=== PATIENT | male | born 1970 | race Two or more races ===

== ENCOUNTER 2024-10-19 14:05 | Emergency (ER) | payer MEDICARE, MEDICAID, SELFPAY ==
[2024-10-19 14:07] VITALS: BMI 26.6
[2024-10-19 14:24] VITALS: BP 115/79; PULSE 85; RESP 20; TEMP 36.7; O2SAT 95
--- NOTE | 2024-10-19 14:31 | PD.EDRME ---
Rapid Medical Screening Exam E Arrival date/time: 10/19/24 14:05 This is a 54-year-old male that comes into the emergency room with a complaint of left flank pain that started yesterday. Patient denies any fever, chills, nausea, vomiting, diarrhea. Patient reports history of diabetes and high blood pressure. I have greeted and performed a focused initial assessment of this patient. Initial appropriate labs ordered at this time. A comprehensive ED assessment and evaluation of the patient and analysis of all test and completion of medical decision making process will be conducted by additional ED provider. Chief Complaint: Urogenital-Male Time Seen by Provider: 10/19/24 14:26 Vital signs: Vital Signs Temperature 98.0 F 10/19/24 14:24 Pulse Rate 85 10/19/24 14:24 Respiratory Rate 20 10/19/24 14:24 Blood Pressure 115/79 10/19/24 14:24 Pulse Oximetry (%) 95 10/19/24 14:24 Oxygen Delivery Method Room Air 10/19/24 14:24
[2024-10-19 14:44] LABS: Basophils # (Auto) 0.1 Thou/mm3 (0.0-0.2); Basophils % (Auto) 1 % (0-2.5); Eosinophils # (Auto) 0.3 Thou/mm3 (0.0-0.5); Eosinophils % (Auto) 4 % (0-10); Hematocrit 38.3 % (41.0-53.0); Hemoglobin 12.9 g/dL (13.5-16.0); Immature Granulocytes % (Auto) 0 % (0-0); Immature Granulocytes Auto 0.02 Thou/mm3 (0.00-0.00); Lymphocytes # (Auto) 3.2 Thou/mm3 (1.0-4.8); Lymphocytes % (Auto) 45 % (10-50); Mean Corpuscular HGB Conc 33.7 g/dl (31.0-37.0); Mean Corpuscular Hemoglobin 27.9 pg (25.0-35.0); Mean Corpuscular Volume 83 fL (80-100); Monocytes # (Auto) 0.5 Thou/mm3 (0.0-0.8); Monocytes % (Auto) 7 % (0-12); Neutrophils # (Auto) 3.2 Thou/mm3 (1.8-7.7); Neutrophils % (Auto) 44 % (37-80); Nucleated Red Blood Cell % 0 /100 WBC (0); Platelet Count 340 Thou/mm3 (140-440); RDW Standard Deviation 38.2 fL (35.1-43.9); Red Blood Count 4.62 Miln/mm3 (4.50-5.90); White Blood Count 7.3 Thou/mm3 (3.8-10.6)
[2024-10-19 15:01] LABS: Alanine Aminotransferase 53 U/L (10-49); Albumin, Serum 4.8 gm/dL (3.5-5.0); Albumin/Globulin Ratio 1.9 (1.2-2.2); Alkaline Phosphatase 79 U/L (46-116); Anion Gap 7 (7-16); Aspartate Amino Transferase 36 U/L (0-34); BUN/Creatinine Ratio 10 Ratio (12-20); Blood Urea Nitrogen 10 mg/dL (9-23); Calcium 9.6 mg/dL (8.3-10.6); Calcium (Corrected) 9.6 mg/dL (8.5-10.1); Carbon Dioxide 30.4 mMol/L (20.0-31.0); Chloride 101 mMol/L (98-107); Estimated Creatinine Clearance 79.8 mL/min (>60); Globulin 2.5 gm/dL (2.3-3.5); Glucose 170 mg/dL (74-106); Lipase 33 U/L (12-53); Osmolality,Calculated 278 (275-295); Potassium 4.3 mMol/L (3.4-5.1); Sodium 138 mMol/L (136-145); Total Protein 7.3 gm/dL (5.7-8.2); eGFR > 60 See Note
[2024-10-19 15:25] LABS: Collection Type, Urine Voided; WBC,Urine 0 /hpf (0-5)
[2024-10-19 15:31] LABS: Amorphous Crystals,Urine Present (Absent); Bilirubin,Urine Negative (Negative); Blood,Urine Negative (Negative); Clarity,Urine Clear (Clear/Hazy); Color,Urine Yellow (Lt Yel-Yel); Culture Indicated,Urine Not Indicated; Glucose, Urine Negative (Negative); Ketones,Urine Negative (Negative); Leukocyte Esterase,Urine Negative (Negative); Nitrite,Urine Negative (Negative); Protein,Urine Negative (Neg - Trace); RBC,Urine 1 /hpf (0-3); Squamous Epithelial Cell,Urine < 1 /hpf (0-5); Urobilinogen,Urine Negative mg/dL (0.0-1.0)
--- NOTE | 2024-10-19 15:57 | XR_ITS ---
Examination: CT abdomen and pelvis without contrast. Coronal 3-D reconstructions. Sagittal 2-D reconstructions. Date and time of exam:October 19, 2024 at 1609 hrs. Indications: Flank pain this week CTDI: vol (mGy): 7.95 DLP: (mGycm): 445 Technique: Axial images of the abdomen have been obtained, 3 mm slice thickness Intravenous contrast material has not been administered. Low dose protocols were performed. One or more of the following dose reduction techniques were used; automated exposure control, adjustment of the mA and/or KV according to patient size, use of iterative reconstruction technique. Findings: Diffuse fatty infiltration throughout the liver. Spleen is not enlarged. Absent gallbladder No pancreatic mass. Moderate air and stool throughout the colon Normal appendix No bowel obstruction No diverticulitis No renal or ureteral calculi No bladder mass or bladder calculi Urinary bladder wall is mildly thickened No significant prostatomegaly Moderate osteopenia Impression: No renal or ureteral calculi, no hydronephrosis No bladder mass or bladder calculi Mild cystitis pattern
--- NOTE | 2024-10-19 15:58 | EDNOTE_ITS ---
<Statement entered by Alexandra Epstein MD - 10/20/24 15:17> As co-signing physician, I was present and available for consult prn. I concur with the plan and care as documented by the midlevel provider. ED General RME/HPI General Chief complaint: Urogenital-Male Stated complaint: L FLANK PAIN SINCE YESTERDAY Time Seen by Provider: 10/19/24 14:26 Arrival date/time: 10/19/24 14:05 CC: Left flank pain HPI onset 24 hours ago denies fever chills shortness of breath difficulty breathing nausea vomiting diarrhea Tylenol does not relieve the pain. No prior history of similar events although the patient was here for flank pain in July 2023. Patient is awake alert oriented nontoxic-appearing in mild discomfort. RME / HPI RME / HPI narrative: 10/19/24 14:05 This is a 54-year-old male that comes into the emergency room with a complaint of left flank pain that started yesterday. Patient denies any fever, chills, nausea, vomiting, diarrhea. Patient reports history of diabetes and high blood pressure. I have greeted and performed a focused initial assessment of this patient. Initial appropriate labs ordered at this time. A comprehensive ED assessment and evaluation of the patient and analysis of all test and completion of medical decision making process will be conducted by additional ED provider. Related Data Home Medications ?Medication ?Instructions ?Recorded ?Confirmed hydroxyzine HCl 25 mg tablet 25 mg PO QDAY 08/24/23 Held on 08/24/23. Instructions: Resume on 08/25/23. losartan 50 mg tablet 50 mg PO QDAY 08/24/2308/24 metformin 1,000 mg tablet 1,000 mg PO BID 08/24/23 methadone 10 mg/5 mL oral solution 70 mg PO QDAY 08/2408/24/23 quetiapine 25 mg tablet 25 mg PO QDAY 08/24/2308/24 Previous Rx's ?Medication ?Instructions ?Recorded ketorolac 10 mg tablet 10 mg PO Q8H PRN pain #14 ta bs 10/19/24 Allergies Allergy/AdvReac Type Severity Reaction Status Date / Time No Known Allergies Allergy Verified 10/19/24 14:06 Review of Systems Review of Systems Narrative Review of Systems: GEN: No fever, no chills, no weight loss EYES: No discharge, no visual changes, no pain HEENT: No ear pain, no congestion, no sore throat PULM: No shortness of breath, no cough, no congestion CV: No chest pain, no dyspnea on exertion, no palpitations GI: No nausea, no vomiting, no diarrhea, no pain, no constipation : No frequency, no urgency, no dysuria MUSC/SKEL: No joint pain, + back pain SKIN: No rash PSYCH: No hallucinations, no depression HEME/LYMPH: No easy bleeding or bruising tendencies NEURO: No weakness, no headache Past Medical History Past Medical History NEUROLOGIC: Negative Neurological Disorders or Seizures CARDIAC: Positive Cardiac Disorders, Hypercholesterolemia and Hypertension; Negative Congestive Heart Failure RESPIRATORY: Negative Chronic Obstructive Pulmonary Disease (COPD) or Asthma GASTROINTESTINAL: Positive Gastrointestinal Disorders (ABDOMINAL PAIN) and Gall Bladder Disease (HAD SURGERY) GENITOURINARY: Positive Genitourinary Disorders and Kidney Stones (IN THE PAST); Negative Renal Disease MUSCULOSKELETAL: Positive Musculoskeletal Disorders and Arthritis ENDOCRINE: Positive Endocrine Disorders and Diabetes Mellitus Type 2; Negative Diabetes Mellitus Type 1 HEMATOLOGIC: Positive Blood Disorders and Anemia; Negative Sickle Cell Disease PSYCHO/SOCIAL: Positive Depression, Anxiety and Post Traumatic Stress Disorder OTHER HISTORY: Negative Autoimmune Disease, Falls, Blood Transfusions, Blood Transfusion Reaction, Anesthesia Reactions, MRSA or Cancer Family History FAMILY HISTORY: Negative Family Neurologic Problems or Family Cardiac Disorders Surgical History SURGICAL: Positive Abdominal Surgery and Arthroscopy (KNEE X2); Negative Endocrine Surgery Social History SMOKING STATUS: Never smoker ED Exam Narrative Physical exam: [General: Mild discomfort but not in any acute distress Head normocephalic HEENT: Within acceptable limits Neck is supple nontender Chest equal chest rise nontender to palpation Respiratory: Clear to auscultation no wheezes crackles or rubs CV: Rate rhythm is regular no murmurs rubs or clicks Abdomen is distended secondary to body habitus soft nontender no masses positive bowel sounds all 4 quadrants Back: Left CVA tenderness no right-sided CVA tenderness, no spinous process tenderness from cervical spine thoracic and lumbar spine Skin: Intact no petechiae rash induration ulceration or crepitus Extremities: Moving all extremity against resistance cap refill less than 2 seconds neurosensory intact Neuro: Awake alert oriented x3 Glascow coma 15 no focal deficits] Course Quality Measures none Orders Category Date Time Status CT abdomen pelvis wo con Stat Exams 10/19/24 15:57 Completed CBC Stat Lab 10/19/24 14:40 Completed Comprehensive Metabolic Panel Stat Lab 10/19/24 14:40 Completed Lipase Stat Lab 10/19/24 14:40 Completed Urinalysis, C/S if Indicated Stat Lab 10/19/24 15:00 Completed Ketorolac Inj [Toradol Inj] Med 10/19/24 17:50 Once 15 mg IM X1 ONE Vital Signs Vital signs: Vital Signs Temperature 98.0 F 10/19/24 14:24 Pulse Rate 85 10/19/24 14:24 Respiratory Rate 20 10/19/24 14:24 Blood Pressure 115/79 10/19/24 14:24 Pulse Oximetry (%) 95 10/19/24 14:24 Oxygen Delivery Method Room Air 10/19/24 14:[address] [facility] Patient data External records reviewed:: [facility] previous records Clinical information provided by:: patient Social determinants that could affect healthcare access:: none Patient has the following chronic illnesses:: None How is presenting disease/condition affected by chronic disease/condition?: u neffected by Evaluation data The following diagnostics were reviewed and interpreted by me:: lab results and radiology exam(s) Lab and/or radiology exams considered but not ordered:: CBC shows no acute leukocytosis mild anemia 12.9 and 38.3 on hemoglobin and hematocrit respectively no thrombocytopenia CMP showed no significant electrolyte imbalances other than a glucose of 170. A very mild transaminitis no T. bili elevation. Lipase is normal Urine is negative other than M4's crystals. CT of the abdomen is negative for any acute finding. Interpretation Summary: Patient be discharged home on ketorolac for flank pain. Medications Medications considered but not ordered:: None Medication administrations:: None Consultations Consultation(s) initiated? (list below): No Diagnosis Differential Diagnosis ED Complaint MDM: Urolithiasis cholelithiasis hydroureter Most likely diagnosis given after review of the tests above:: Left flank pain Admission Indicated Admission indicated?: not indicated Explain why admission is indicated or not indicated:: Stable for discharge Admission Request Was there a request for admission?: No Disposition Plan Disposition Plan: Discharge Discharge Attestation Discharge Attestation: The patient and all family members were given an opportunity to ask questions and understood the discharge instructions. Discharge instructions specifically effects, indications for sooner follow up or return to the emergency department, and the expected course of current diagnosis. Patient condition: Stable Medical Decision Making Differential Diagnosis Differential Diagnosis: Urolithiasis cholelithiasis hydroureter Lab Data 10/19/24 14:40 10/19/24 14:40 Labs: Lab Results 10/19/24 10/19/24 Range/Units 14:40 15:00 WBC 7.3 (3.8-10.6) Thou/mm3 RBC 4.62 (4.50-5.90) Miln/mm3 Hgb 12.9 L (13.5-16.0) g/dL Hct 38.3 L (41.0-53.0) % MCV 83 (80-100) fL MCH 27.9 (25.0-35.0) pg MCHC 33.7 (31.0-37.0) g/dl RDW Std Deviation 38.2 (35.1-43.9) fL Plt Count 340 (140-440) Thou/mm3 Neut % (Auto) 44 (37-80) % Lymph % (Auto) 45 (10-50) % [place] % (Auto) 7 (0-12) % Eos % (Auto) 4 (0-10) % Baso % (Auto) 1 (0-2.5) % Neut # (Auto) 3.2 (1.8-7.7) Thou/mm3 Lymph # (Auto) 3.2 (1.0-4.8) Thou/mm3 [place] # (Auto) 0.5 (0.0-0.8) Thou/mm3 Eos # (Auto) 0.3 (0.0-0.5) Thou/mm3 Baso # (Auto) 0.1 (0.0-0.2) Thou/mm3 Immature Gran # (Auto) 0.02 H (0.00-0.00) Thou/mm3 Absolute Nucleated RBC 0.00 (0.00-0.00) Thou/mm3 Immature Gran % 0 (0-0) % Nucleated RBC % 0 (0) /100 WBC Sodium 138 (136-145) mMol/L Potassium 4.3 (3.4-5.1) mMol/L Chloride 101 (98-107) mMol/L Carbon Dioxide 30.4 (20.0-31.0) mMol/L Anion Gap 7 (7-16) BUN 10 (9-23) mg/dL Creatinine 1.0 (0.6-1.3) mg/dL Estim Creat Clear Calc 79.8 (>60) mL/min eGFR > 60 (60 - ) See Note BUN/Creatinine Ratio 10 L (12-20) Ratio Glucose 170 H (74-106) mg/dL Calculated Osmolality 278 (275-295) Calcium 9.6 (8.3-10.6) mg/dL Corrected Calcium 9.6 (8.5-10.1) mg/dL Total Bilirubin 1.0 (0.3-1.2) mg/dL AST 36 H (0-34) U/L ALT 53 H (10-49) U/L Alkaline Phosphatase 79 (46-116) U/L Total Protein 7.3 (5.7-8.2) gm/dL Albumin 4.8 (3.5-5.0) gm/dL Globulin 2.5 (2.3-3.5) gm/dL Albumin/Globulin Ratio 1.9 (1.2-2.2) Lipase 33 (12-53) U/L Ur Collection Type Voided Urine Color Yellow (Lt Yel-Yel) Urine Clarity Clear (Clear/Hazy) Urine pH 6.0 (5.0-7.0) Ur Specific [place] 1.020 (1.001-1.035) Urine Protein Negative (Neg - Trace) Urine Glucose (UA) Negative (Negative) Urine Ketones Negative (Negative) Urine Blood Negative (Negative) Urine Nitrite Negative (Negative) Urine Bilirubin Negative (Negative) Urine Urobilinogen (Auto) Negative (0.0-1.0) mg/dL Ur Leukocyte Esterase Negative (Negative) Urine RBC 1 (0-3) /hpf Urine WBC 0 (0-5) /hpf Ur Squamous Epith Cells < 1 (0-5) /hpf Amorphous Crystals Present A (Absent) Urine Bacteria None (None) Ur Culture Indicated? Not Indicated Discharge Plan Plan Patient Disposition: HOME (Self Care) Patient condition on transfer: Stable Prescriptions/Referrals Prescriptions/Med Rec: New ketorolac 10 mg tablet 10 mg PO Q8H PRN (Reason: pain) Qty: 14 0RF Rx Instructions: maximum total duration of 5 days from all oral, intranasal, or parenteral formulations No Action losartan 50 mg tablet 50 mg PO QDAY quetiapine 25 mg tablet 25 mg PO QDAY metformin 1,000 mg tablet 1,000 mg PO BID hydroxyzine HCl 25 mg tablet 25 mg PO QDAY methadone 10 mg/5 mL Solution 70 mg PO QDAY Referrals: Benjamin Randolph MD [Primary Care Provider] - In 1 week Problem List Clinical Impression: Left flank pain Patient/Caregiver Discharge Instructions Education Materials: ED Flank Pain, Uncertain Cause Additional Instructions: Take the medication as prescribed follow-up with your primary care provider if there is a worsening of symptoms return the emergency room for further evaluation. Print Language: Slovenian Stand Alone Forms: Estefany Award Info., Patient Portal Info Letter, Work/School Release PA/CENTRAL OFFICE OPERATOR SUPERVISOR Supervising Physician PA/CENTRAL OFFICE OPERATOR SUPERVISOR Supervising Physician: Prasanna Collier ENP
--- NOTE | 2024-10-19 17:44 | PRELIM_ITS ---
CT scan of the abdomen and pelvis without intravenous contrast (axial sections with sagittal and coronal reformats) October 19, 2024 1609 hours Clinical History: Right flank pain . Radiation Dose: Total exam DLP 446 mGy/cm Comparison: No prior study is available for comparison. Findings: There is a non-calcified nodule in the left lower lobe, measuring 8x5 mm ( axial image 15/266). A small hypodense lesion is noted in the liver, which is too small to characterize. The gallbladder is surgically absent. There is no evidence of renal/ureteric calculus or hydroureteronephrosis. The pancreas, spleen, kidneys and adrenals are unremarkable on this noncontrast study. No evidence of bowel obstruction. A moderate amount of fecal material is present in the colon. The appendix is within normal limits (axial images 79- 98/141). There is no mesenteric or retroperitoneal adenopathy. The aorta and its branches demonstrate atheromatous calcification without evidence of aneurysm. The urinary bladder is unremarkable. There is no free fluid or free air. Mild degenerative changes are identified in the spine. Impression: No evidence of renal/ureteric calculus or hydroureteronephrosis. A non-calcified nodule in the left lower lobe , Recommend follow-up. Report Electronically Signed By: David Whitaker 10/19/2024 5:43:00 PM [EST]
[2024-10-19] MEDS: KETOROLAC INJ 60 MG/2 ML VIAL 15 MG IM (19:06)
== END 2024-10-19 19:13 | disposition home or self-care (01) ==
PROVIDERS: Nurse Practitioner Family; Emergency Provider Emergency Medicine; PCP Family Medicine
DX: R10.9 Unspecified abdominal pain (principal); E78.00 Pure hypercholesterolemia, unspecified; I10 Essential (primary) hypertension; E11.9 Type 2 diabetes mellitus without complications
CPT/HCPCS: 36415; 74176; 80053; 81001; 83690; 85025; 96372; 99284; J1885

== ENCOUNTER 2024-12-04 08:15 | Outpatient (AMB) | payer OTHER, SELFPAY ==
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
[2024-12-04 08:25] VITALS: BP 115/78; PULSE 69; RESP 18; TEMP 36.4; O2SAT 97; BMI 26.5
--- NOTE | 2024-12-04 08:39 | XR_ITS ---
Examination: AP bilateral knees single view PA, lateral, axial right knee 3 views TECHNIQUE: Bilateral AP knees standing single view PA right knee standing, lateral right knee standing, axial right knee 3 views total 4 views Date and time: December 04, 2024 0849 hours Comparison 04/07/2008 INDICATIONS: Right knee pain 20 years with several surgeries FINDINGS: Advanced narrowing lateral joint space right knee Advanced osteoarthritis right patellofemoral joint No right patellar dislocation Mild to moderate narrowing medial lateral joint spaces left knee IMPRESSION: Advanced narrowing lateral joint space right knee Advanced osteoarthritis right patellofemoral joint
== END 2024-12-04 08:42 | disposition home or self-care (01) ==
LOC: HODSRG 08:15
PROVIDERS: PCP Family Medicine; Referring Provider Family Medicine; Supervising Provider Orthopaedic Surgery Adult Reconstructive Orthopaedic Surgery; Visit Provider Orthopaedic Surgery Adult Reconstructive Orthopaedic Surgery
DX: M17.11 Unilateral primary osteoarthritis, right knee (principal)
CPT/HCPCS: 73564; 99204; G0463

== ENCOUNTER 2024-12-25 07:47 | Outpatient (AMB) | payer OTHER, SELFPAY ==
--- NOTE | 2024-12-25 08:08 | PD.ORTHCLVIS ---
Vital signs 12/25/24 08:09 Height 1.73 m Height Method Stated Weight 79.124 kg Weight Measurement Method Standing Scale BMI 26.4 BP 114/77 Blood Pressure Source Automatic Cuff Blood Pressure Location Left Upper Arm Position Sitting Respiration 18 Pulse 68 Pulse Source Monitor Temp 97.5 F Temp Source Temporal Artery Scan Pulse Oximetry (%) 95 Oxygen Delivery Method Room Air Med/Allergies Allergies & Medications Allergies No Known Allergies Allergy (Verified 12/25/24 08:09) Medication Reconciliation hydroxyzine HCl 25 mg tablet 25 mg PO QDAY 08/24/23 [History Confirmed 12/25/24] Held on 08/24/23. Instructions: Resume on 08/25/23. losartan 50 mg tablet 50 mg PO QDAY 08/24/23 [History Confirmed 12/25/24] metformin 1,000 mg tablet 1,000 mg PO BID 08/24/23 [History Confirmed 12/25/24] lovastatin 10 mg tablet 10 mg PO QDAY 12/04/24 [History Confirmed 12/25/24] meloxicam 7.5 mg tablet 7.5 mg PO QDAY #45 tabs 12/04/24 [Rx Confirmed 12/25/24] omeprazole 20 mg tablet,delayed release 20 mg PO QDAY 12/04/24 [History Confirmed 12/25/24] tamsulosin 0.4 mg capsule 0.4 mg PO QDAY 12/04/24 [History Confirmed 12/25/24] Exam Exam Patient is in no acute distress and is cooperative with the examination today. Breathing is nonlabored. In no respiratory distress. Bilateral extremities were evaluated and demonstrates sensation intact to light touch. Palpable pedal pulses are present. No significant edema is present. Bilateral hips were examined. The patient has no pain with log roll of the hips. Internal rotation to 30 degrees and external rotation to 30 degrees is painless. Negative FADIR. The left knee was examined. The left knee is in Valgus alignment. Range of motion from 0-115 degrees. Knee is stable to varus and valgus as well as AP translation with <5mm. Patient has a negative McMurrays. There is no pain with patellofemoral compression and no crepitus noted. The knee is tender to palpation laterally The right knee was also examined. The right knee is in Valgus alignment. Range of motion from 0-120 degrees. Knee is stable to varus and valgus as well as AP translation with <5mm. Patient has a negative McMurrays. There is no pain with patellofemoral compression and no crepitus noted. The knee is tender to palpation Laterally Xrays demonstrate significant valgus alignment and joint space narrowing laterally and osteophytes Assessment and Plan Problem List (1) Arthritis of right knee: Status: Acute Plan: Patient is a 54-year-old male with 2 prior arthroscopic meniscectomies with right knee pain. He has valgus alignment and is significant bilateral knee pain on the right knee. He has tried 5 injections. He would like to try another round of injections today Recommend knee cortisone injection as patient would like to proceed with conservative treatment at this time. The risks and benefits of the procedure were reviewed with the patient and patient gave verbal consent to continue with the procedure. Procedure: performed by Dr. Pimentel Using sterile technique the Right knee was thoroughly prepped with alcohol, and approximately 1 cc of Kenalog 40 mg/mL and 4 cc of 1% lidocaine was injected without resistance into the medial tibial femoral joint space. The patient tolerated the procedure. Office Procedures GNS Level of Care Nursing/Assessment Patient Status: Established Patient Nursing Assessment/Reassesment: Medication Reconciliation, Update PMH in EMR and Vital Signs Coordination of Care: Complex Care and Chronic Disease 1-5, Education Complex Pt/Fam, Consent,records obtained, informed consent, Results/Orders obtained and Staff clarify orders Special Needs: Language special needs Established Patient Charge Established Patient Point Assignment: 95 Established Patient Point Charge: EP Level 3 (80-115) Surgical Proc/IM SQ injection Major Surgical Procedure: Yes (RIGHT KNEE INJECTION) Medication Given Medication Given Medication Given: Yes Documented Dose Given: 4 Route: Infiitration Medication Given Medication Given Medication Given: Yes Documented Dose Given: 1 Route: Infiitration Office Meds Xylocaine 10 mg/mL (1 %) injection solution Performing Provider: Kwabena Pimentel MD Performing Location: [facility] Administered by: Kwabena Pimentel MD on 12/25/24 08:22 Dose Route Admin Location Dispensed Lot Number Expiration Date [facility] [employer] 20 mL Infiltration 20 mL [id number] 11/06/27 44218-732-59 [employer] KA triamcinolone acetonide 40 mg/mL suspension for injection Performing Provider: Kwabena Pimentel MD Performing Location: [facility] Administered by: Kwabena Pimentel MD on 12/25/24 08:22 Dose Route Admin Location Dispensed Lot Number Expiration Date [facility] [employer] 40 mg intra-articular KNEE 1 mL [id number] 02/04/26 13816-447-87 COLLETTE MACE MA Intake Visit Data Collection New Patient or Established: Established Patient (seen at [facility] within 3 years) Reason for Visit:: XRAY RESULTS R KNEE PAIN Seen by Clinical Staff ONLY (RN/MA): No Manager Aviation Required: Yes PCP or OBGYN visit in last 3 months: Yes Hx Now: No Do You Feel Safe at Home: Yes Authorities Contacted: N/A Questionairres Past Medical History Past Medical History Have you ever been diagnosed with any of the following: Neurological Problems Seizures: No Cardiology Problems Hypercholesterolemia: Yes Congestive Heart Failure: No Hypertension: Yes Respiratory Problems Chronic Obstructive Pulmonary Disease (COPD): No Asthma: No Smoking: No Smoking Exposure: No Stomache/Intestinal Problems Gall Bladder Disease: Yes (HAD SURGERY) Genital/Urinary Problems Renal Disease: No Kidney Stones: Yes (IN THE PAST) Musculoskeletal Problems Arthritis: Yes Endocrine Problems Diabetes Mellitus Type 1: No Diabetes Mellitus Type 2: Yes Blood Problems Anemia: Yes Sickle Cell Disease: No Psychologic Problems Depression: Yes Anxiety: Yes Post Traumatic Stress Disorder: Yes Other Problems Falls: No Blood Transfusions: No Blood Transfusion Reaction: No Anesthesia Reactions: No MRSA: No Cancer: No Subjective Visit Visit for: follow up visit, knee and x-rays Immunization / Flu Flu Vaccine in the Last 12 Months: No Flu Vaccine Exclusion Criteria: No Exclusion Criteria History of Present Illness Chief complaint: right knee pain Date of injury / onset of symptoms: 6 YEARS Patient is a 54-year-old male with right knee pain. This been ongoing for several years. He has had 2 prior arthroscopic meniscectomies with the last one being 5 years ago. He reports his knee now is miserable. HHe has tried over 5 injections and tramadol. Pain Pain level (0-10): 6 Pain duration: CONSTANT Pain location: outside (lateral) and anterior Pain quality: dull and aching Pain timing: increases with activity Associated signs & symptoms: none Ambulatory data Ambulatory device: none Treatments Number of previous injections: 5 Improvement with previous injections: No Improvement with PT: No Improvement with NSAIDS: no Review of Systems Review of Systems: All systems negative unless otherwise noted in HPI.
[2024-12-25 08:09] VITALS: BP 114/77; PULSE 68; RESP 18; TEMP 36.4; O2SAT 95; BMI 26.4
== END 2024-12-25 08:26 | disposition home or self-care (01) ==
LOC: HODSRG 07:47
PROVIDERS: PCP Family Medicine; Referring Provider Family Medicine; Supervising Provider Orthopaedic Surgery Adult Reconstructive Orthopaedic Surgery; Visit Provider Orthopaedic Surgery Adult Reconstructive Orthopaedic Surgery
DX: M17.11 Unilateral primary osteoarthritis, right knee (principal); M25.561 Pain in right knee; M25.562 Pain in left knee; I10 Essential (primary) hypertension; E78.00 Pure hypercholesterolemia, unspecified; E11.9 Type 2 diabetes mellitus without complications
CPT/HCPCS: 20610; 99213; J3301; J3490; G0463